=== PATIENT | female | born 1970 | race Caucasian/White ===

== ENCOUNTER 2021-11-15 13:04 | Inpatient (IN) | payer OTHER, SELFPAY ==
[2021-11-15] VITALS (12 sets, daily range): BP systolic 118–157; BP diastolic 62–99; PULSE 90–126; RESP 16–32; TEMP 37–37.7; O2SAT 95–98; BMI 27.2
--- NOTE | 2021-11-15 13:14 | DI.RAD.S_ITS ---
PROCEDURE: XR CHEST 1V INDICATIONS: suspected sepsis TECHNIQUE: One view of the chest was acquired. COMPARISON: None. FINDINGS: Surgical changes and devices: None. Lungs and pleura: Lungs are clear. No pleural effusions or pneumothorax. Mediastinum: Mediastinal contours appear normal. Heart size is normal. Bones and chest wall: No suspicious bony lesions. Overlying soft tissues appear unremarkable. IMPRESSION: No acute cardiopulmonary disease. Dictated by: Oksana Bautista M.D. on 11/15/2021 at 15:36 Approved by: Oksana Bautista M.D. on 11/15/2021 at 15:36
--- NOTE | 2021-11-15 13:37 | DI.RAD.S_ITS ---
PROCEDURE: XR FOOT LT MIN 3V INDICATIONS: rule out osteo TECHNIQUE: Three views of the foot were acquired. COMPARISON: None. FINDINGS: Bones: No fractures or dislocations. No suspicious bony lesions. Remote 5th metatarsal base cortical avulsion versus enthesopathy. No visible cortical erosions. Soft tissues: No tibiotalar joint effusion. Achilles tendon appears normal. No soft tissue gas. IMPRESSION: 1. No radiographic evidence of osteomyelitis. MR imaging is recommended if there is continued concern for osteomyelitis as radiographs are insensitive. 2. No soft tissue gas. Dictated by: Oksana Bautista M.D. on 11/15/2021 at 15:36 Approved by: Oksana Bautista M.D. on 11/15/2021 at 15:37
[2021-11-15] MEDS: SODIUM CHLORIDE 0.9% 1,000 ML 1000 ML IV ×2 (13:43→16:10)
--- NOTE | 2021-11-15 13:53 | PC.NURSE ---
patient got a pedicure and they used a grater on the bottom of her foot and since then a ulceration has formed. She has neuropathy and is unable to feel pain but she does have a 1 cm hole approx 0.5 cm deep. The wound is free from drainage but the area around her foot is red and swollen over most of her toes.
[2021-11-15 14:05] LABS: Add Manual Diff / Slide Review NO; Basophils Absolute Auto 100 /uL (0-100); Basophils Percent Auto 0.4 % (0-2); Eosinophils Absolute Auto 0 /uL (0-450); Hematocrit 37.8 % (36-46); Lymphocytes Absolute Auto 2400 /uL (1100-4500); Mean Corpuscular HGB Conc 34.3 % (30-36); Mean Corpuscular Hemoglobin 31.3 PG (26-34); Mean Corpuscular Volume 91.2 fL (80-100); Monocytes Absolute Auto 1100 /uL (0-900); Monocytes Percent Auto 7.3 % (3-14); Neutrophils Absolute Auto 11700 /uL (1500-7000); Neutrophils Percent Auto 76.3 % (50-75); Platelet Count 315 X10^3/uL (150-400); Red Blood Cell Count 4.14 X10^6/uL (4.0-5.2); Red Cell Distribution Width 12.7 % (11.6-14.8); White Blood Cell Count 15.3 X10^3/uL (4.5-11.0)
[2021-11-15 14:21] LABS: Lactate (Lactic Acid) 2.7 mmol/L (0.7-2.1)
[2021-11-15 14:24] LABS: Alanine Aminotransferase 22 IU/L (<35); Albumin 4.4 g/dL (3.5-5.0); Albumin Globulin Ratio 1.1 (1.0-2.8); Alkaline Phosphatase 91 U/L (38-126); Aspartate Aminotransferase 22 IU/L (14-36); BUN Creatinine Ratio 16.9 (6-22); Blood Urea Nitrogen 14 mg/dL (7-17); Calcium 9.9 mg/dL (8.4-10.2); Carbon Dioxide 26 mmol/L (22-32); Chloride 97 mmol/L (98-107); Estimated Glomerular Filt Rate > 60.0 mL/min (>60); Glucose 363 mg/dL (70-100); HEMOLYSIS < 15 (0-50); Lipase 159 U/L (23-300); Sodium 132 mmol/L (137-145); Total Protein 8.4 g/dL (6.3-8.2)
--- NOTE | 2021-11-15 14:29 | ED.SKABFB ---
HPI - Skin/Abscess/Foreign Bdy General Chief complaint: Skin/Abscess/Foreign Body Stated complaint: ulcer on left foot, diabetic Time Seen by Provider: 11/15/21 14:02 Source: patient Mode of arrival: Ambulatory Limitations: no limitations History of Present Illness HPI narrative: This is a 51-year-old female comes emergency department with complaint infection the bottom of her left foot. Patient states she had a pedicure approximately a month they used ?a cheese Grater? on the bottom of her foot. She developed a wound which has seen and intermittently infected and better and worse. She developed redness in the foot and extending up her leg today. She has had fevers from 99 F to 101 F for the last several days at home. She states it is not painful but she has significant neuropathy and does not have any sensation. It has been draining yellow discharge on her sock. She denies any chest pain or shortness of breath, no nausea or vomiting, no GI or urinary symptoms. Patient denies any swelling in her legs otherwise. She is an insulin-dependent diabetic she has not been taking her insulin because she has a vial and has run of syringes. She is on metformin, lisinopril, gabapentin, atorvastatin repair in all. She has had a prior . She has had issues with eczema but no prior skin infections. She has been using Neosporin topically. She is allergic to sulfa she gets hives. Her primary care is Anna marte and she follows with a mathematics department chair who has seen her for her foot. No tobacco, she has alcohol 4 times weekly, THC edible once weekly but no other illicit. Related Data Home Medications Medication Instructions Recorded Confirmed CA PANTOTHENATE/FOLIC ACID/VIT 1 tab PO Q DAY #0 06/12/12 11/15/21 (MULTIVITAMIN) CHOLECALCIFEROL (VITAMIN D3) 4 tsp PO QAM #0 06/12/12 11/15/21 Fish Oil (#OMEGA-3 FISH OIL) 1,200 mg PO Q DAY #0 06/12/12 11/15/21 aspirin 81 mg capsule 81 mg PO DAILY #0 06/12/12 11/15/21 lisinopril 5 mg tablet 5 mg PO SEEINSTR #0 06/12/12 11/15/21 metformin 1,000 mg tablet 1,000 mg PO BID #0 06/12/12 11/15/21 (Glucophage) atorvastatin 20 mg tablet 20 mg PO QPM 11/15/21 11/15/21 gabapentin 600 mg tablet 1,200 mg PO QPM 11/15/21 11/15/21 ropinirole 0.25 mg tablet 0.25 mg PO QPM 11/15/21 11/15/21 Allergies Allergy/AdvReac Type Severity Reaction Status Date / Time From Allergy Mild FULL BODY Uncoded 11/15/21 18:03 HIVES,ITCHING Review of Systems Review of Systems ROS Unobtainable: All systems reviewed & are unremarkable except as noted in HPI and below Patient History Social History household members: spouse and children Smoking Status: Never smoker alcohol intake: current Exam Narrative Exam Narrative: GENERAL: Alert and oriented x three, well-appearing female in mild distress. HEENT: Head normocephalic, atraumatic, EOMI, pupils reactive, face symmetric, moist mucous membranes NECK: Supple, full range of motion CARDIOVASCULAR: Regular rate and rhythm without murmurs, rubs or gallops. RESPIRATORY: Breath sounds equal bilaterally, no wheezes rales or rhonchi. ABDOMEN: Soft, nontender. Normoactive bowel sounds all 4 quadrants. No guarding or rebound, rigidity, no mass : No CVA tenderness EXTREMITIES: Normal range of motion, no clubbing. Neurovascularly intact. Patient has wound on the ball of her left foot with opening that is approximately cord 0.5 cm in size when probed with the depth about 1 cm. Patient has an area of erythema extending to the dorsum of the foot tracking up the leg to mid calf. She is nontender. I am not able to express additional discharge at this time. NEUROLOGICAL: Cranial nerves II through XII grossly intact. Moving all extremities SKIN: Warm, dry, no petechiae, no rashes or lesions. Initial Vital Signs Initial Vital Signs: Vital Signs Temperature 99.9 F H 11/15/21 13:08 Pulse Rate 126 H 11/15/21 13:08 Respiratory Rate 18 11/15/21 13:08 Blood Pressure 157/99 H 11/15/21 13:08 Pulse Oximetry 98 11/15/21 13:08 Course Orders Ordered: ED Orders 11/15/21 13:14 XR chest 1V Stat RT Consult Eval and Treat NOW 11/15/21 13:25 EKG-12 Lead Stat 11/15/21 13:30 CRP [C-Reactive Protein Quant] Stat Complete Blood Count AUTO DIFF Stat Comprehensive Metabolic Panel Stat ESR [Erythrocyte Sedimentation Rate] Stat Lactate (Lactic Acid) Stat Lipase Stat Procalcitonin Stat 11/15/21 13:37 XR foot LT min 3V Stat 11/15/21 14:10 Blood Culture Stat 11/15/21 14:50 Urine Microscopic Stat 11/15/21 15:16 COVID19 -Nasal swab/Pre-Proc Stat Acetaminophen (Acetaminophen 325 Mg Tablet) 650 mg PO Q6HR PRN PRN Reason: pain Enoxaparin Sodium (Enoxaparin 40 Mg/0.4 Ml Syringe) 40 mg SUBCUT DAILY [place] Vancomycin HCl/Dextrose (Vancomycin) 1,500 mg in 300 mls @ 200 mls/hr IV Q24H [place] Last Infusion: 11/15/21 16:44 Dose: 0 mls/hr Documented by: Admin: 11/15/21 14:44 Dose: 200 mls/hr Documented by: CATHY Sodium Chloride (Normal Saline 0.9%) 1,000 mls @ 100 mls/hr IV CONT [place] Cefepime HCl 1 gm/ Sodium (Chloride) 100 mls @ 200 mls/hr IV Q12H [place] Ondansetron HCl (Ondansetron 4 Mg/2 Ml Inj) 4 mg IV Q8HR PRN PRN Reason: Nausea And Vomiting Vancomycin HCl (Vancomycin Per Pharmacy) 1 request MISC NOW ONE Stop: 11/15/21 18:19 Discontinued Medications Sodium Chloride (Normal Saline 0.9%) 1,000 mls @ 1,000 mls/hr IV BOLUS ONE Stop: 11/15/21 14:13 Last Infusion: 11/15/21 15:43 Dose: 0 mls/hr Documented by: Admin: 11/15/21 13:43 Dose: 1,000 mls/hr Documented by: CATHY Sodium Chloride (Normal Saline 0.9%) 1,000 mls @ 1,000 mls/hr IV BOLUS ONE Stop: 11/15/21 16:43 Last Infusion: 11/15/21 17:54 Dose: 0 mls/hr Documented by: Admin: 11/15/21 16:10 Dose: 1,000 mls/hr Documented by: CATHY Reevaluation(s) Reevaluation #1: patient updated on findings. ESR, CRP are elevated lactate was elevated patient has been febrile at home 99 F here but tachycardic initially which improved with fluids. She had a vanco for possible osteomyelitis versus infected diabetic foot ulcer. Patient is agreeable to admission. Consultations Consultation #1: Dr. Ramos, hospitalist. Accepts for admission for diabetic foot ulcer which is infected verses osteomyelitis. Patient meets septic criteria with leukocytosis of 15, tachycardic at 1:20 a.m. with a sinus tach on arrival and had elevated lactate which is improving with fluids. Procalcitonin negative. This x-ray is negative but I do have concern about osteo. Plan for admission to initiate IV antibiotics, MRI tomorrow to help delineate her infection and disposition for appropriate treatment. Vital Signs Vital signs: Vital Signs - 8 hr 11/15/21 13:08 11/15/21 13:35 11/15/21 13:39 Temperature 99.9 F H Pulse Rate 126 H 109 H 106 H Respiratory Rate 18 21 Blood Pressure 157/99 H 128/68 Pulse Oximetry 98 97 95 11/15/21 14:00 11/15/21 14:30 11/15/21 14:53 Temperature Pulse Rate 97 H 104 H 109 H Respiratory Rate 20 24 16 Blood Pressure 124/64 121/67 130/62 Pulse Oximetry 97 96 98 11/15/21 15:00 11/15/21 15:30 Temperature Pulse Rate 98 H 94 H Respiratory Rate 32 H 23 Blood Pressure 125/62 118/64 Pulse Oximetry 97 97 MDM - Skin/Abscess/Foreign Bdy Lab Data Result diagrams: 11/15/21 13:30 11/15/21 13:30 Labs: Lab Results 11/15/21 11/15/21 11/15/21 Range/Units 13:30 13:30 13:30 WBC 15.3 H (4.5-11.0) X10^3/uL RBC 4.14 (4.0-5.2) X10^6/uL Hgb 13.0 (12.0-16.0) g/dL Hct 37.8 (36-46) % MCV 91.2 (80-100) fL MCH 31.3 (26-34) PG MCHC 34.3 (30-36) % RDW 12.7 (11.6-14.8) % Plt Count 315 (150-400) X10^3/uL Neut % (Auto) 76.3 H (50-75) % Lymph % (Auto) 16.0 L (25-40) % [place] % (Auto) 7.3 (3-14) % Eos % (Auto) 0.0 L (2-4) % Baso % (Auto) 0.4 (0-2) % Neut # (Auto) 35194 H (8712-2300) /uL Lymph # (Auto) 2400 (5962-1507) /uL [place] # (Auto) 1100 H (0-900) /uL Eos # (Auto) 0 (0-450) /uL Baso # (Auto) 100 (0-100) /uL ESR (0-20) MM/HR Sodium 132 L (137-145) mmol/L Potassium 4.0 (3.4-5.1) mmol/L Chloride 97 L (98-107) mmol/L Carbon Dioxide 26 (22-32) mmol/L BUN 14 (7-17) mg/dL Creatinine 0.83 (0.52-1.04) mg/dL Estimated GFR > 60.0 (>60) mL/min BUN/Creatinine Ratio 16.9 (6-22) Glucose 363 H (70-100) mg/dL Lactate 2.7 H (0.7-2.1) mmol/L Calcium 9.9 (8.4-10.2) mg/dL Total Bilirubin 1.0 (0.2-1.3) mg/dL AST 22 (14-36) IU/L ALT 22 (<35) IU/L Alkaline Phosphatase 91 (38-126) U/L C-Reactive Protein (<1.0) mg/dL Total Protein 8.4 H (6.3-8.2) g/dL Albumin 4.4 (3.5-5.0) g/dL Globulin 4.0 (1.7-4.1) g/dL Albumin/Globulin Ratio 1.1 (1.0-2.8) Lipase 159 (23-300) U/L Procalcitonin 0.06 (<0.5) ng/mL Urine RBC (0-5/HPF) Urine WBC (0-5/HPF) Urine Bacteria (None) Ur Culture Indicated? SARS-CoV-2 (PCR) (Negative) 11/15/21 11/15/21 11/15/21 Range/Units 13:30 13:30 14:50 WBC (4.5-11.0) X10^3/uL RBC (4.0-5.2) X10^6/uL Hgb (12.0-16.0) g/dL Hct (36-46) % MCV (80-100) fL MCH (26-34) PG MCHC (30-36) % RDW (11.6-14.8) % Plt Count (150-400) X10^3/uL Neut % (Auto) (50-75) % Lymph % (Auto) (25-40) % [place] % (Auto) (3-14) % Eos % (Auto) (2-4) % Baso % (Auto) (0-2) % Neut # (Auto) (1171-5824) /uL Lymph # (Auto) (8130-5628) /uL [place] # (Auto) (0-900) /uL Eos # (Auto) (0-450) /uL Baso # (Auto) (0-100) /uL ESR 58 H (0-20) MM/HR Sodium (137-145) mmol/L Potassium (3.4-5.1) mmol/L Chloride (98-107) mmol/L Carbon Dioxide (22-32) mmol/L BUN (7-17) mg/dL Creatinine (0.52-1.04) mg/dL Estimated GFR (>60) mL/min BUN/Creatinine Ratio (6-22) Glucose (70-100) mg/dL Lactate (0.7-2.1) mmol/L Calcium (8.4-10.2) mg/dL Total Bilirubin (0.2-1.3) mg/dL AST (14-36) IU/L ALT (<35) IU/L Alkaline Phosphatase (38-126) U/L C-Reactive Protein 8.6 H (<1.0) mg/dL Total Protein (6.3-8.2) g/dL Albumin (3.5-5.0) g/dL Globulin (1.7-4.1) g/dL Albumin/Globulin Ratio (1.0-2.8) Lipase (23-300) U/L Procalcitonin (<0.5) ng/mL Urine RBC 0-1/hpf (0-5/HPF) Urine WBC None seen (0-5/HPF) Urine Bacteria Occasional (0-1) (None) Ur Culture Indicated? Cult not indicated SARS-CoV-2 (PCR) (Negative) 11/15/21 11/15/21 Range/Units 15:16 15:59 WBC (4.5-11.0) X10^3/uL RBC (4.0-5.2) X10^6/uL Hgb (12.0-16.0) g/dL Hct (36-46) % MCV (80-100) fL MCH (26-34) PG MCHC (30-36) % RDW (11.6-14.8) % Plt Count (150-400) X10^3/uL Neut % (Auto) (50-75) % Lymph % (Auto) (25-40) % [place] % (Auto) (3-14) % Eos % (Auto) (2-4) % Baso % (Auto) (0-2) % Neut # (Auto) (9194-8837) /uL Lymph # (Auto) (9818-6368) /uL [place] # (Auto) (0-900) /uL Eos # (Auto) (0-450) /uL Baso # (Auto) (0-100) /uL ESR (0-20) MM/HR Sodium (137-145) mmol/L Potassium (3.4-5.1) mmol/L Chloride (98-107) mmol/L Carbon Dioxide (22-32) mmol/L BUN (7-17) mg/dL Creatinine (0.52-1.04) mg/dL Estimated GFR (>60) mL/min BUN/Creatinine Ratio (6-22) Glucose (70-100) mg/dL Lactate 1.1 (0.7-2.1) mmol/L Calcium (8.4-10.2) mg/dL Total Bilirubin (0.2-1.3) mg/dL AST (14-36) IU/L ALT (<35) IU/L Alkaline Phosphatase (38-126) U/L C-Reactive Protein (<1.0) mg/dL Total Protein (6.3-8.2) g/dL Albumin (3.5-5.0) g/dL Globulin (1.7-4.1) g/dL Albumin/Globulin Ratio (1.0-2.8) Lipase (23-300) U/L Procalcitonin (<0.5) ng/mL Urine RBC (0-5/HPF) Urine WBC (0-5/HPF) Urine Bacteria (None) Ur Culture Indicated? SARS-CoV-2 (PCR) Negative (Negative) Point of Care Testing Test Results Negative Urine Dip Bedside Urine Glucose 1000 mg/dl Bedside Urine Bilirubin - Negative Bedside Urine Ketone - Negative Urine Specific [place] 1.01 Bedside Urine Occult Blood - Negative Bedside Urine pH 6 Bedside Urine Protein - Negative Bedside Urine Urobilinogen - Negative Bedside Urine Nitrite - Negative Bedside Urine Leukocytes - Negative Esterase Imaging Data Extremity x-ray #1: Radiologist's Impression: [address] [address] XRay Report Signed Patient: Irma Rush MR#: [id number] : 1970 Acct:[id number] Age/Sex: 51 / F Date of Service: 11/15/21 Loc: ED Accession Number: [id number] ?? Procedure: XR foot LT min 3V Ordering Provider: Lesley Hughes D.O. PROCEDURE:? XR FOOT LT MIN 3V ? INDICATIONS:? rule out osteo ? TECHNIQUE:? Three views of the foot were acquired.? ? COMPARISON:? None. ? FINDINGS:? ? Bones:? No fractures or dislocations.? No suspicious bony lesions.? Remote 5th metatarsal base cortical avulsion versus enthesopathy.? No visible cortical erosions. ? Soft tissues:? No tibiotalar joint effusion.? Achilles tendon appears normal.? No soft tissue gas. ? ? IMPRESSION:? ? 1. No radiographic evidence of osteomyelitis.? MR imaging is recommended if there is continued concern for osteomyelitis as radiographs are insensitive. ? 2. No soft tissue gas.? ? ? Dictated by: Oksana Bautista M.D. on 11/15/2021 at 15:36 ? ? Approved by: Oksana Bautista M.D. on 11/15/2021 at 15:37?? ECG Data Attestation: I personally reviewed and interpreted this ECG as follows: Interpretation: Sinus tachycardia rate of 112 TN 126 QRS 80 QTC 450. No acute ST elevation or depression noted Q-wave in 2 3 and AVF. MDM Narrative Medical decision making narrative: This is a 51-year-old female known diabetic who is not well controlled and has not been taking her insulin recently. Patient had a pedicure a month ago with use of a ?she has greater on her foot.Patient has had a wound on her foot for that entire time she has had temperature is 101-99 F at home. She is tachycardic with a leukocytosis of 15 which improves with fluids. She does have a wound it is not expressing a significant amount of purulent fluid but she has cellulitis tracking over the dorsum and tracking up her ankle. X-ray is negative but she has elevated ESR and CRP concerning for possible osteomyelitis in the setting of diabetes which is not well controlled, patient was admitted for sepsis, diabetic foot infection versus osteomyelitis to the hospitalist after receiving 30 cc/kilos fluid bolus as well as IV antibiotics. Cultures are pending blood as well as from the wound itself. Discharge Plan Departure Patient Disposition: Admitted as Observation Clinical Impression: Diabetic infection of left foot, Sepsis Admit Date/Time: 11/15/21 16:35 Admit Provider: Fam Ramos
[2021-11-15 14:39] LABS: Procalcitonin 0.06 ng/mL (<0.5)
[2021-11-15] MEDS: VANCOMYCIN 1,500 MG/300 ML PIGGYBACK 200 MG IV (14:44)
[2021-11-15 15:09] LABS: C-Reactive Protein Quant 8.6 mg/dL (<1.0)
[2021-11-15 15:15] LABS: Erythrocyte Sedimentation Rate 58 MM/HR (0-20)
[2021-11-15 15:27] LABS: Bacteria Urine Occasional (0-1); Culture Indicated Urine Cult Not Indicated; RBC Urine 0-1/HPF (0-5/HPF); WBC Urine None Seen (0-5/HPF)
[2021-11-15 15:48] LABS: Reflexed Lactate in 2 Hours Y
[2021-11-15 16:03] LABS: COVID19 -Nasal RAPID Negative (Negative)
[2021-11-15 16:15] LABS: Lactate 2HR (Lactic Acid Rflx) 1.1 mmol/L (0.7-2.1)
--- NOTE | 2021-11-15 18:19 | DI.MRI.S_ITS ---
PROCEDURE: MR FOOT LT WO/W CON INDICATIONS: osteomyelitis TECHNIQUE: Noncontrast sagittal T1 spin echo and T2 fast spin echo with fat saturation, long-axis T1 spin echo and T2 fast spin echo with fat saturation; short-axis T1 spin echo, proton density fast spin echo, and T2 fast spin echo with fat saturation through the forefoot. Post-contrast short axis, long axis, and sagittal T1 spin echo with fat saturation through the forefoot. COMPARISON: [facility], CR, XR FOOT LT MIN 3V, 11/15/2021, 14:17. FINDINGS: Image quality: Excellent. Bones and joints: No suspicious osseous enhancement. No bone marrow contusions or metatarsal stress fractures. The sesamoid bones appear in expected positions, without internal edema. No metatarsophalangeal joint degeneration. No intraosseous lesions. Soft tissues: Reticulated and confluent T2 hyperintense/T1 hypointense signal is seen in the soft tissues, most prominent along the plantar aspect of the 1st MTP joint and 5th metatarsal base. Confluent contrast enhancement is seen along the plantar aspect of the hallux sesamoids, measuring 1.2 x 0.9 x 1.7 cm, most consistent with phlegmon/ulceration. The visualized plantar foot muscles demonstrate fatty atrophy with reticulated T2 hyperintense signal, compatible with reactive edema. Visualized flexor and extensor tendons appear intact, without tenosynovitis. The distal insertions of the peroneus longus tendon appears intact. The principal Lisfranc ligament appears intact. Sagittal images demonstrate no evidence for plantar plate tears. IMPRESSION: 1. No evidence of osteomyelitis. 2. Diffuse intramuscular edema, which may reflect reactive change versus myositis. 3. Area of contrast enhancement overlying the plantar aspect of the hallux sesamoids, most consistent with phlegmon/ulcer. Dictated by: Collin Gan M.D. on 11/16/2021 at 11:07 Approved by: Collin Gan M.D. on 11/16/2021 at 11:17
[2021-11-15] MEDS: SODIUM CHLORIDE 0.9% 1,000 ML 100 ML IV (19:07)
[2021-11-15] MEDS: CEFEPIME 1 GM in SODIUM CHLORIDE 0.9% 100 ML 200 ML IV (19:08)
[2021-11-16] VITALS (9 sets, daily range): BP systolic 103–119; BP diastolic 60–70; PULSE 77–89; RESP 16–20; TEMP 36.7–37.6; O2SAT 96–99
--- NOTE | 2021-11-16 00:44 | P.HP_ITS ---
History of Present Illness History of Present Illness Date Patient Seen: 11/15/21 Time Patient Seen: 22:30 Chief complaint: diabetic foot ulcer on left foot Narrative: Irma Rush is a 51-year-old female with diabetes type 2, diabetic peripheral neuropathy, and essential hypertension presented to the emergency department today with a complaint of a wound on her left ball of her foot that appears to have gotten infected. She had a pedicure done approximately 1 month ago. She states that the manager solar and used some sort of serrated file on the ball of h er left foot. She realize that it did break some skin. She presented today because she developed a fever of 99-101 F for several days and noticed that there was some redness extending up her leg. She states that it has been draining yellow discharge that she notices mainly when she removes her socks. She has not tried to express the wound at all but has used Neosporin topically on her foot. She states that is not painful as she has bilateral peripheral neuropathy and has no sensation in her feet. she takes gabapentin for this in the evenings. She sees Dr. Silvia Farrar, benefits coordinator on [place] and has an appointment with her several weeks from now. Patient states she used to take in sulin and in reviewing the ED provider's notes the patient had run out of her prescription for syringes. She used to be on glargine 20 units at bedtime. Patient states that she went on a keto diet and was able to drop her A1c down to 6.2, lost 20 lb and over Stu when off the diet and her most recent hemoglobin A1c at that time was 10. X-ray of the left foot did not reveal suspicion for osteomyelitis or gas around the wound. Chest x-ray was within normal limits. Patient's T-max in the emergency department was 99.9. Currently her blood pressure is 118/66, heart rate 90, respiratory rate 16, oxygen saturation of 97% on room air she weighs 72 kg with a BMI of 27.2. She does have elevated WBC of 15.3 with a left shift of almost 12,000 neutrophils ESR is 58 sodium 132 potassium 4.0 chloride 97 glucose 363 the rest of her chemistries are within normal limits C-reactive protein is 8 .6 liver enzymes within normal limits, UA is negative for UTI and COVID-19 PCR is negative Patient History Medical History (Updated 11/16/21 @ 03:18 by ZOE Hanks) Diabetes type 2, controlled Essential hypertension Neuropathy in diabetes (06/12/12) Pure hyperglyceridemia (06/12/12) Family & Social History Family history unavailable: Yes (Adopted, believes her mother in her 60s of a cancer of unknown origin) Social History: household members spouse,children Prior Living Arrangements House Safety & Behavioral: Feels Safe in Current Yes Environment Been Physically Hurt or No Threatened By a Person Suicidal Ideation Description None Suicide Plan Description No Plan Tobacco & Substance use: Smoking Status Never smoker alcohol intake current alcohol intake frequency a few times a week Substance Use Type marijuana Meds Home Medications and Allergies Home Medications Medication Instructions Recorded Confirmed Type CA PANTOTHENATE/FOLIC ACID/VIT 1 tab PO Q DAY #0 06/12/12 11/15/21 History (MULTIVITAMIN) CHOLECALCIFEROL (VITAMIN D3) 4 tsp PO QAM #0 06/12/12 11/15/21 History Fish Oil (#OMEGA-3 FISH OIL) 1,200 mg PO Q DAY #0 06/12/12 11/15/21 History aspirin 81 mg capsule 81 mg PO DAILY #0 06/12/12 11/15/21 History lisinopril 5 mg tablet 5 mg PO SEEINSTR #0 06/12/12 11/15/21 History metformin 1,000 mg tablet 1,000 mg PO BID #0 06/12/12 11/15/21 History (Glucophage) atorvastatin 20 mg tablet 20 mg PO QPM 11/15/21 11/15/21 History gabapentin 600 mg tablet 1,200 mg PO QPM 11/15/21 11/15/21 History ropinirole 0.25 mg tablet 0.25 mg PO QPM 11/15/21 11/15/21 History Allergies Allergy/AdvReac Type Severity Reaction Status Date / Time From APRRA Allergy Mild FULL BODY Uncoded 11/15/21 18:03 HIVES,ITCHING Review of Systems Review of Systems ROS: Yes All systems reviewed with the patient and are negative except as otherwise documented Exam Vital Signs (past 8 hours): - 11/15/21 18:49 11/15/21 23:55 Temperature 98.6 F 98.8 F Pulse Rate 107 H 90 Respiratory Rate 18 16 Blood Pressure 122/71 118/66 Pulse Oximetry 97 97 Oxygen Delivery Method Room Air Oxygen Flow Rate 0 Narrative Exam Narrative: Gen: Alert, oriented, well-developed 51 y.o. female, sound asleep when I entered the room, but responded to very loud voice HEENT: normocephalic, atraumatic, conjunctiva clear, sclera non-icteric, oral mucosa pink and moist Neck: supple, full ROM, no JVD, trachea is midline Resp: Lungs CTA, non-labored breathing CV: RRR, no murmur or rubs Abd: soft, non-tender, normoactive BTs Skin: Has a yellowed and peeling lesion approximately 1-1/2 inches in diameter on the ball of her left foot with surrounding erythema extending into the forefoot and over the remainder of her toes. Neuro: Alert and oriented X 4 w/no focal deficits. Speech clear and coherent. Extremities: moves all 4 extremities, is ambulatory, negative Vinicio?s sign Psyche: normal mood and affect. Objective Labs Result Diagrams: 11/15/21 13:30 11/15/21 13:30 Labs: Laboratory Results - last 24 hr 11/15/21 11/15/21 11/15/21 13:30 13:30 13:30 WBC 15.3 H RBC 4.14 Hgb 13.0 Hct 37.8 MCV 91.2 MCH 31.3 MCHC 34.3 RDW 12.7 Plt Count 315 Neut % (Auto) 76.3 H Lymph % (Auto) 16.0 L [place] % (Auto) 7.3 Eos % (Auto) 0.0 L Baso % (Auto) 0.4 Neut # (Auto) 43568 H Lymph # (Auto) 2400 [place] # (Auto) 1100 H Eos # (Auto) 0 Baso # (Auto) 100 ESR Sodium 132 L Potassium 4.0 Chloride 97 L Carbon Dioxide 26 BUN 14 Creatinine 0.83 Estimated GFR > 60.0 BUN/Creatinine Ratio 16.9 Glucose 363 H Lactate 2.7 H Calcium 9.9 Total Bilirubin 1.0 AST 22 ALT 22 Alkaline Phosphatase 91 C-Reactive Protein Total Protein 8.4 H Albumin 4.4 Globulin 4.0 Albumin/Globulin Ratio 1.1 Lipase 159 Procalcitonin 0.06 Urine RBC Urine WBC Urine Bacteria Ur Culture Indicated? SARS-CoV-2 (PCR) 11/15/21 11/15/2111/15/22 13:30 13:30 14:50 WBC RBC Hgb Hct MCV MCH MCHC RDW Plt Count Neut % (Auto) Lymph % (Auto) [place] % (Auto) Eos % (Auto) Baso % (Auto) Neut # (Auto) Lymph # (Auto) [place] # (Auto) Eos # (Auto) Baso # (Auto) ESR 58 H Sodium Potassium Chloride Carbon Dioxide BUN Creatinine Estimated GFR BUN/Creatinine Ratio Glucose Lactate Calcium Total Bilirubin AST ALT Alkaline Phosphatase C-Reactive Protein 8.6 H Total Protein Albumin Globulin Albumin/Globulin Ratio Lipase Procalcitonin Urine RBC 0-1/hpf Urine WBC None seen Urine Bacteria Occasional (0-1) Ur Culture Indicated? Cult not indicated SARS-CoV-2 (PCR) 11/15/21 11/15/21 15:16 15:59 WBC RBC Hgb Hct MCV MCH MCHC RDW Plt Count Neut % (Auto) Lymph % (Auto) [place] % (Auto) Eos % (Auto) Baso % (Auto) Neut # (Auto) Lymph # (Auto) [place] # (Auto) Eos # (Auto) Baso # (Auto) ESR Sodium Potassium Chloride Carbon Dioxide BUN Creatinine Estimated GFR BUN/Creatinine Ratio Glucose Lactate 1.1 Calcium Total Bilirubin AST ALT Alkaline Phosphatase C-Reactive Protein Total Protein Albumin Globulin Albumin/Globulin Ratio Lipase Procalcitonin Urine RBC Urine WBC Urine Bacteria Ur Culture Indicated? SARS-CoV-2 (PCR) Negative Assessment & Plan Assessment & Plan narrative: Irma Rush is a very delightful 51-year-old female with a history of type 2 diabetes previously using insulin, is admitted for further treatment and management of a diabetic foot ulcer. 1. Diabetic foot ulcer on the left foot, acute, present on admission * Patient was initiated on IV cefepime and IV vancomycin and this will be cont inued * MRI of the foot will be done in the morning and if there is suspicion for osteomyelitis recommend orthopedic consult to informed podiatry of patient's admission * Continue home dose of gabapentin 1200 mg p.o. at bedtime for diabetic foot neuropathy 2. Diabetes type 2, appears not will be well controlled * I have ordered an A1c * She will be restarted on her previous home dose of Lantus 20 units daily * Carb controlled diet with a.c. and HS glucose checks 3. Essential hypertension, chronic and stable * She takes lisinopril 5 mg p.o. daily and will continue this * Continue home dose of aspirin 81 mg p.o. daily 4. Hyperlipidemia, chronic * Continue home dose of atorvastatin 20 mg p.o. daily 5. Restless leg syndrome, chronic * Continue home dose of ropinirole 0.25 mg p.o. at bedtime VTE Prophylaxis: Wells risk score 0 Enoxaparin 40 mg subQ once daily Bilateral SCDs Patient is admitted to the inpatient service due to the severity of disease, risks of further disease progression and this stay is expected to exceed 2 midnights. FEN: IV fluids: Normal saline at 100 mL/hour diet: Carb controlled diet, labs: CBC, C/BMP, liver enzymes, Mag, PT/INR Consultants None at this time Dispo: Probable discharge home Code status: Full code as discussed with the patient. [X] I have utilized all available immediate resources to obtain, update, or review of the patient's current medications COVID-19 COVID-19 status: Negative Result date/Date tested (Pos, Neg/Pending): 11/15/21 Time Spent With Patient Critical Care time: I spent a total of [] minutes of critical care time on this patient's care today; this time is exclusive of procedural time. Scores Wells' Criteria for PE Clinical signs and symptoms of DVT: No PE is #1 Dx or equally likely: No Heart rate > 100: No Immobilization at least 3 days or surg in previous 4 weeks: No History of PE or DVT: No Hemoptysis: No Malignancy w/Treatment within 6 months or palliative: No Wells' PE Score total: 0 Quality VTE Deep Vein Thrombosis/Pulmonary Embolism Present on Admission: No MIPS - Admit I confirm the patient?s Advance Care Plan is present, Code status is documented, Surrogate decision maker is in patient?s record [If Yes, STOP here]: Yes MIPS - DC The patient has current or prior documentation of left ventricular ejection fraction (LVEF) less than 40%, or moderate or severely depressed left ventricular systolic function.: No
[2021-11-16] MEDS: CEFEPIME 1 GM in SODIUM CHLORIDE 0.9% 100 ML 200 ML IV ×2 (06:10→18:14)
[2021-11-16] MEDS: SODIUM CHLORIDE 0.9% 1,000 ML 100 ML IV (06:13)
[2021-11-16 06:36] LABS: Add Manual Diff / Slide Review NO; Basophils Absolute Auto 0 /uL (0-100); Basophils Percent Auto 0.3 % (0-2); Eosinophils Absolute Auto 100 /uL (0-450); Eosinophils Percent Auto 0.6 % (2-4); Hematocrit 31.3 % (36-46); Hemoglobin 10.9 g/dL (12.0-16.0); Lymphocytes Absolute Auto 2200 /uL (1100-4500); Lymphocytes Percent Auto 19.7 % (25-40); Mean Corpuscular HGB Conc 34.7 % (30-36); Mean Corpuscular Hemoglobin 31.9 PG (26-34); Mean Corpuscular Volume 91.9 fL (80-100); Monocytes Absolute Auto 900 /uL (0-900); Monocytes Percent Auto 7.7 % (3-14); Neutrophils Absolute Auto 8000 /uL (1500-7000); Neutrophils Percent Auto 71.7 % (50-75); Platelet Count 235 X10^3/uL (150-400); Red Cell Distribution Width 12.6 % (11.6-14.8); White Blood Cell Count 11.2 X10^3/uL (4.5-11.0)
[2021-11-16 06:43] LABS: BUN Creatinine Ratio 16.4 (6-22); Blood Urea Nitrogen 12 mg/dL (7-17); Calcium 7.9 mg/dL (8.4-10.2); Carbon Dioxide 22 mmol/L (22-32); Chloride 107 mmol/L (98-107); Estimated Glomerular Filt Rate > 60.0 mL/min (>60); Glucose 254 mg/dL (70-100); HEMOLYSIS < 15 (0-50); Potassium 4.1 mmol/L (3.4-5.1); Sodium 136 mmol/L (137-145)
[2021-11-16 06:51] LABS: Hemoglobin A1C% w Est Avg Glu 12.6 % (4.0-6.0)
--- NOTE | 2021-11-16 07:28 | PC.NURSE ---
NOC: admit to floor at 1900. falguni w/ patient. has open area to plantar area of Left foot after pedicure 1 month ago. area is JOSELINE, encouraged her to wear a sock when ambulating to/from bathroom. continues w/ IVF, NS @ 100, IV abx. NPO since midnight.
[2021-11-16] MEDS: ENOXAPARIN 40 MG/0.4 ML SYRINGE SUBCUT (11:52)
[2021-11-16] MEDS: ASPIRIN EC 81 MG TABLET PO (11:52)
[2021-11-16] MEDS: VANCOMYCIN 1,500 MG/300 ML PIGGYBACK 200 MG IV (14:49)
--- NOTE | 2021-11-16 15:14 | P.PN_ITS ---
Subjective Subjective Date Patient Seen: 11/16/21 Time Patient Seen: 15:14 Interval history: No significant improvement in swelling, but no progression either of cellulitis. MRI negative for fluid collection. Exam Vital Signs (past 8 hours): - 11/16/21 07:17 11/16/21 07:40 11/16/21 11:48 Temperature 99.6 F Pulse Rate 77 77 Respiratory Rate 20 Blood Pressure 107/63 107/63 Pulse Oximetry 98 99 Oxygen Delivery Method Room Air Oxygen Flow Rate 0 Narrative Exam Narrative: Gen: Alert, oriented, well-developed 51 y.o. ? female in no acute distress HEENT: normocephalic, atraumatic, conjunctiva clear, sclera non-icteric, oral mucosa pink and moist Neck: supple, full ROM, no JVD, trachea is midline Resp: Lungs CTA, non-labored breathing CV: RRR, no murmur or rubs Abd: soft, non-tender, normoactive BTs Skin: left?1st MTP joint, plantar surface, with ulceration under callous formation. No bone visible. surrounding erythema demarcated with no significant change. No purulence able to be expressed Neuro: Alert and oriented X 4 w/no focal deficits. Speech clear and coherent. bilateral peripheral neuropathy of the lower extremities, chronic. Extremities: no edema or joint effusion Psyche: normal mood and affect. Objective Labs Result Diagrams: 11/16/21 06:24 11/16/21 06:24 Labs: Laboratory Results - last 24 hr 11/15/21 11/15/21 11/15/21 13:30 14:50 15:16 WBC RBC Hgb Hct MCV MCH MCHC RDW Plt Count Neut % (Auto) Lymph % (Auto) [place] % (Auto) Eos % (Auto) Baso % (Auto) Neut # (Auto) Lymph # (Auto) [place] # (Auto) Eos # (Auto) Baso # (Auto) ESR 58 H Sodium Potassium Chloride Carbon Dioxide BUN Creatinine Estimated GFR BUN/Creatinine Ratio Glucose Hemoglobin A1c Lactate Calcium Urine RBC 0-1/hpf Urine WBC None seen Urine Bacteria Occasional (0-1) Ur Culture Indicated? Cult not indicated SARS-CoV-2 (PCR) Negative 11/15/21 11/16/21 11/16/21 15:59 06:24 06:24 WBC 11.2 H RBC 3.40 L Hgb 10.9 L Hct 31.3 L MCV 91.9 MCH 31.9 MCHC 34.7 RDW 12.6 Plt Count 235 Neut % (Auto) 71.7 Lymph % (Auto) 19.7 L [place] % (Auto) 7.7 Eos % (Auto) 0.6 L Baso % (Auto) 0.3 Neut # (Auto) 8000 H Lymph # (Auto) 2200 [place] # (Auto) 900 Eos # (Auto) 100 Baso # (Auto) 0 ESR Sodium 136 L Potassium 4.1 Chloride 107 Carbon Dioxide 22 BUN 12 Creatinine 0.73 Estimated GFR > 60.0 BUN/Creatinine Ratio 16.4 Glucose 254 H D Hemoglobin A1c Lactate 1.1 Calcium 7.9 L Urine RBC Urine WBC Urine Bacteria Ur Culture Indicated? SARS-CoV-2 (PCR) 11/16/21 06:24 WBC RBC Hgb Hct MCV MCH MCHC RDW Plt Count Neut % (Auto) Lymph % (Auto) [place] % (Auto) Eos % (Auto) Baso % (Auto) Neut # (Auto) Lymph # (Auto) [place] # (Auto) Eos # (Auto) Baso # (Auto) ESR Sodium Potassium Chloride Carbon Dioxide BUN Creatinine Estimated GFR BUN/Creatinine Ratio Glucose Hemoglobin A1c 12.6 H Lactate Calcium Urine RBC Urine WBC Urine Bacteria Ur Culture Indicated? SARS-CoV-2 (PCR) [facility] Medical History (Updated 11/16/21 @ 03:18 by ZOE Hanks) Diabetes type 2, controlled Essential hypertension Neuropathy in diabetes (06/12/12) Pure hyperglyceridemia (06/12/12) Social History household members: spouse and children Smoking Status: Never smoker alcohol intake: current Assessment & Plan Assessment & Plan narrative: Irma Rush is a very delightful 51-year-old female with a history of type 2 diabetes previously using insulin, is admitted for further treatment and management of a diabetic foot ulcer. 1. Diabetic foot ulcer on the left foot, acute, present on admission, with corresponding cellulitis. * Patient was initiated on IV cefepime and IV vancomycin and this will be continued * MRI negative for osteomyeltitis or fluid collection, continue antibiotics. Consider orthopedics or podiatry if no significant improvement in surrounding erythema * Continue home dose of gabapentin 1200 mg p.o. at bedtime for diabetic foot neuropathy 2. Diabetes type 2, appears not will be well controlled * a1c 12.6% * restarted lantus, continue to adjust as needed. Continue sliding scale as well. 3. Essential hypertension, chronic and stable * She takes lisinopril 5 mg p.o. daily and will continue this * Continue home dose of aspirin 81 mg p.o. daily 4. Hyperlipidemia, chronic * Continue home dose of atorvastatin 20 mg p.o. daily 5. Restless leg syndrome, chronic * Continue home dose of ropinirole 0.25 mg p.o. at bedtime Dispo:? Probable discharge home, discharge 1-3 days depending on progress of i nfection with antibitiocs. Code status:? Full code as discussed with the patient. Time Spent With Patient Critical Care time: I spent a total of [] minutes of critical care time on this patient's care today; this time is exclusive of procedural time. Quality VTE Deep Vein Thrombosis/Pulmonary Embolism Present on Admission: No
--- NOTE | 2021-11-16 15:26 | CM.DANOTE ---
DCP: Case received, EMR reviewed and met with patient. Introduced self and role. Was able to obtain information regarding patient's baseline health history prior to hospitalization. DCP assessment completed with information currently available Patient is a 51 year old female who admitted yesterday afternoon to the care of the hospitalist team. PCP: Dr. Gillette. Payer: confirmed: [facility]. Patient came to the hospital via private vehicle secondary to having concerns about a possible infection at the bottom of her foot. Patient had recently had a pedicure and indicated, they used a certain tool, like a cheese grater on the bottom of her foot. Patient has history of neuropathy secondary to diabetes type 2. Patient has been noting yellowish drainage on her sock, did not feel any discomforts, related to neuropathy. Patient is a insulin dependent diabetic. She holds current diagnosis of diabetic foot infection, foot x-ray is negative for osteomyelitis. Met with patient in her room. She is alert and oriented. She was laying on the bed, pleasant. Patient resides with her spouse, Moo, in [place]. She is independent at her baseline, sees Dr. Gillette, and has a equal opportunity officer that she sees. Patient is diabetic, asked her if she has had any problems getting her meds, and she indicated that she has not had any trouble getting her medications, they are mail order. P: DCP to continue to follow. Patient should be able to go home when she is deemed medically stable. Elisha Che RN/Back Closer Discharge Planning/Care Management Advanced directive, confirm from FAMILY Start: 11/15/21 18:51 Freq: Q24H Status: Active Protocol: Document 11/15/21 18:51 AKP (Rec: 11/15/21 18:52 AKP [id number]) Advance Directive, confirm on record Time 18:52 Person contacted spouse Moo Copy received No CM Discharge Assessment Start: 11/16/21 15:25 Freq: Status: Active Protocol: Document 11/16/21 15:25 (Rec: 11/16/21 15:26 [id number]) Discharge Planning Assessment Assigned Cut In Worker Elisha Che RN/Back Closer Advance Directives? Yes Advance Directives on File No History Provided By Patient,Medical Record Prior Living Arrangements House Household Members spouse,children Type of transporation used prior to Drives own vehicle admit Independent with ADL's Yes Is patient alert and oriented? Yes Caregiver for Another No Barriers to Discharge No Discharge Plan Home Transportation Arrangement Spouse Referrals Initiated None needed Whiteboard Updated in Patient Room with Yes name and ext. # of Cut In Worker Review Status In Process Next Review Type Continued Stay Review
--- NOTE | 2021-11-16 16:49 | DIET.CONS ---
Dietary Consultation Note Admission Date: 11/15/2021 16:35 Assessment: RD attempted bedside consultation for suboptimal control of DM2. Pt rocking on window seat looking like in pain. Pt reports not good time for discussion. RD alerted nurse who found out pt has IBS and dealing with flare. RD to check back in with pt Tuesday morning. Ht: 162.56 cm Wt: 72 kg BMI: 27.2 UBW: Last BM: 11/13/21 (11/15/21 18:19) MNA: 12 Fernando Score: 20 Diet: 11/16/21 Breakfast Carbohydrate Consistent Diet Diet Modifications: Carbohydrate level: Medium (3 CHO) Nutrition Percent Meal Consumed 100% 11/15/21 20:00 Labs: RBC 3.40 X10^6/uL (4.0-5.2) L 11/16/21 06:24 Hgb 10.9 g/dL (12.0-16.0) L 11/16/21 06:24 Hct 31.3 % (36-46) L 11/16/21 06:24 Creatinine 0.73 mg/dL (0.52-1.04) 11/16/21 06:24 Hemoglobin A1c 12.6 % (4.0-6.0) H 11/16/21 06:24 Lactate 1.1 mmol/L (0.7-2.1) 11/15/21 15:59 Electronically Signed by: Indu Barrera 11/16/21 16:49 Clinical Dietitian [address] [id number]
[2021-11-16] MEDS: ROPINIROLE 0.25 MG TABLET PO (17:57)
[2021-11-16] MEDS: ATORVASTATIN 20 MG TABLET PO (17:57)
[2021-11-16] MEDS: GABAPENTIN 600 MG TABLET 1200 MG PO (17:57)
[2021-11-16] MEDS: lisinopriL 5 MG TABLET PO (21:01)
[2021-11-16] MEDS: INSULIN GLARGINE 100 UNIT/ML 3ML PEN 15 UNIT SUBCUT (21:06)
[2021-11-17 04:20] VITALS: BP 98/58; PULSE 76; RESP 18; TEMP 36.7; O2SAT 98
[2021-11-17] MEDS: CEFEPIME 1 GM in SODIUM CHLORIDE 0.9% 100 ML 200 ML IV (06:17)
[2021-11-17] MEDS: ENOXAPARIN 40 MG/0.4 ML SYRINGE SUBCUT (08:31)
[2021-11-17] MEDS: ASPIRIN EC 81 MG TABLET PO (08:31)
[2021-11-17] MEDS: INSULIN LISPRO 100 UNIT/ML 3ML VIAL SUBCUT (08:48)
--- NOTE | 2021-11-17 10:15 | P.DS_ITS ---
History of Present Illness History of Present Illness Date Patient Seen: 11/17/21 Time Patient Seen: 10:15 Chief complaint: diabetic foot ulcer on left foot Narrative: OZE [place]: Irma Rush is a 51-year-old female with diabetes type 2, diabetic peripheral neuropathy, and essential hypertension presented to the emergency department to day with a complaint of a wound on her left ball of her foot that appears to have gotten infected.? She had a pedicure done approximately 1 month ago.? She states that the customer support technician and used some sort of serrated file on the ball of her left foot.? She realize that it did break some skin.? She presented today because she developed a fever of 99-101 F for several days and noticed that there was some redness extending up her leg.? She states that it has been draining yellow discharge that she notices mainly when she removes her socks.? She has not tried to express the wound at all but has used Neosporin topically on her foot.? She states that is not painful as she has bilateral peripheral ne uropathy and has no sensation in her feet. she takes gabapentin for this in the evenings.? She sees Dr. Silvia Farrar, manager marketing communications on [place] and has an appointment with her several weeks from now.? Patient states she used to take insulin and in reviewing the ED provider's notes the patient had run out of her prescription for syringes.? She used to be on glargine 20 units at bedtime.? Patient states that she went on a keto diet and was able to drop her A1c down to 6.2, lost 20 lb and over [place] when off the diet and her most recent hemoglobin A1c at that time was 10. X-ray of the left foot did not reveal suspicion for osteomyelitis or gas around the wound.? Chest x-ray was within normal limits.? Patient's T-max in the emergency department was 99.9.? Currently her blood pressure is 118/66, heart rate 90, respiratory rate 16, oxygen saturation of 97% on room air she weighs 72 kg with a BMI of 27.2.? She does have elevated WBC of 15.3 with a left shift of almost 12,000 neutrophils ESR is 58 sodium 132 potassium 4.0 chloride 97 glucose 363 the rest of her chemistries are within normal limits C-reactive protein is 8.6 liver enzymes within normal limits, UA is negative for UTI and COVID-19 PCR is negative Discharge Providers Provider Date of admission: 11/15/21 16:35 Discharge Date: 11/17/21 Primary care physician: Anna Gillette Consults: 11/16/21 10:37 Consult to Dietitian, Adult Routine Comment: Reason For Exam: diabetes A1c 12.6% Discharge provider: Fabiano Fleming DO Summary Hospital Course Discharge Diagnosis: 1. Diabetic foot ulcer on the left foot, acute, present on admission, with corresponding cellulitis. 2. Diabetes type 2, appears not will be well controlled 3. Essential hypertension, chronic and stable 4. Hyperlipidemia, chronic 5. Restless leg syndrome, chronic Hospital Course: Irma Rush is a very delightful 51-year-old female with a history of type 2 diabetes previously using insulin who was admitted for a left foot cellulitis and plantar surface ulcer over the 1st MTP joint. There was no active purulence or drainage, imaging showed no discrete abscess or evidence of osteomyelitis. She was treated with IV antibiotics initially, with improvement in her cellulitis and swelling. She was discharged on oral antibiotics including cefdinir doxycycline for continued outpatient management. She plans to follow- up with her manager marketing communications for further diabetic foot management and wound care. No other changes were made to her home medications. Time Spent with Patient Time spent: Greater than 30 minutes Exam Vital Signs (past 8 hours): - 11/17/21 04:20 Temperature 98.0 F Pulse Rate 76 Respiratory Rate 18 Blood Pressure 98/58 L Pulse Oximetry 98 Oxygen Delivery Method Room Air Oxygen Flow Rate 0 Narrative Exam Narrative: Gen: Alert, oriented, well-developed 51 y.o. ? female in no acute distress HEENT: normocephalic, atraumatic, conjunctiva clear, sclera non-icteric, oral mucosa pink and moist Neck: supple, full ROM, no JVD, trachea is midline Resp: Lungs CTA, non-labored breathing CV: RRR, no murmur or rubs Abd: soft, non-tender, normoactive BTs Skin: left?1st MTP joint, plantar surface, with ulceration under callous formation. No bone visible. surrounding erythema demarcated with improvement today. No purulence able to be expressed Neuro: Alert and oriented X 4 w/no focal deficits. Speech clear and coherent. bilateral peripheral neuropathy of the lower extremities, chronic. Extremities: no edema or joint effusion Psyche: normal mood and affect. Objective Labs Result Diagrams: 11/16/21 06:24 11/16/21 06:24 [facility] Medical History (Updated 11/16/21 @ 03:18 by ZOE Hanks) Diabetes type 2, controlled Essential hypertension Neuropathy in diabetes (06/12/12) Pure hyperglyceridemia (06/12/12) Social History household members: spouse and children Smoking Status: Never smoker alcohol intake: current Discharge Plan Discharge Plan Patient Disposition: Home Provider Discharge Comment: You were admitted to the hospital with a diabetic foot infection and ulcer with a callous. Please follow up with your manager marketing communications and continue treatment with antibiotics. Please follow up with your PCP for diabetes management, in the short term if your diet is going to significantly change we can reduce your lantus to 10 units a day to reduce risk of low blood sugars. Discharge orders & Medications Prescriptions: New cefdinir 300 mg capsule 300 mg PO BID 10 Days Qty: 20 0RF doxycycline hyclate 100 mg tablet 100 mg PO BID 10 Days Qty: 20 0RF Lantus U-100 Insulin 100 unit/mL solution 10 unit SUBCUT QPM 30 Days Qty: 3 0RF Continued aspirin 81 mg Capsule 81 mg PO DAILY Qty: 0 0RF Fish Oil (#OMEGA-3 FISH OIL) 1,200 mg PO Q DAY Qty: 0 0RF metformin [Glucophage] 1,000 MG tablet 1,000 mg PO BID Qty: 0 0RF lisinopril 5 MG tablet 5 mg PO SEEINSTR Qty: 0 0RF Rx Instructions: 10mg in am and 5mg tab at nighttime CA PANTOTHENATE/FOLIC ACID/VIT (MULTIVITAMIN) 1 tab PO Q DAY Qty: 0 0RF CHOLECALCIFEROL (VITAMIN D3) 4 tsp PO QAM Qty: 0 0RF gabapentin 600 mg tablet 1,200 mg PO QPM 0RF atorvastatin 20 mg tablet 20 mg PO QPM 0RF ropinirole 0.25 mg tablet 0.25 mg PO QPM 0RF Follow up/Referrals: Anna Gillette PA-C [Primary Care Provider] - Diet/Activity/Treatments Diet: Diet as Tolerated Activity: As tolerated, avoid pressure over R forefoot. Discharge Data Primary Care Provider: Anna Gillette VTE Deep Vein Thrombosis/Pulmonary Embolism Present on Admission: No
[2021-11-17 10:16] VITALS: O2SAT 99
[2021-11-17 10:22] VITALS: BP 131/77
[2021-11-17] MEDS: lisinopriL 10 MG TABLET PO (10:33)
--- NOTE | 2021-11-17 11:59 | PC.NURSE ---
Patient and spouse in room, verbalize understanding to all discharge education/ instructions given. Patient will follow up with PCP for continued insulin management, wound cares for left foot. Leaves in wheelchair and spouse goes down to get car to drive home in. Saline lock dc'd- tip intact.
== END 2021-11-17 11:59 | disposition home or self-care (01) | DRG 638 ==
LOC: ED 14:02 → AC 17:55
PROVIDERS: Nurse Practitioner Family; Admitting Provider Internal Medicine; Emergency Provider Emergency Medicine; PCP Physician Assistant; Referring Provider Emergency Medicine; Visit Provider Internal Medicine
DX: E11.621 Type 2 diabetes mellitus with foot ulcer (principal); L03.116 Cellulitis of left lower limb; L97.521 Non-pressure chronic ulcer of other part of left foot limited to breakdown of skin; E11.65 Type 2 diabetes mellitus with hyperglycemia; E11.42 Type 2 diabetes mellitus with diabetic polyneuropathy; I10 Essential (primary) hypertension; E78.5 Hyperlipidemia, unspecified; G25.81 Restless legs syndrome; Z20.822 Contact with and (suspected) exposure to COVID-19; Z79.84 Long term (current) use of oral hypoglycemic drugs
CPT/HCPCS: 36415; 71045; 73630; 73720; 80048; 80053; 81003; 81015; 81025; 82962; 83036; 83605; 83690; 84145; 85025; 85651; 86140; 87040; 87070; 87075; 87077; 87147; 87205; 87635; 93005; 94760; 96365; 96366; 99284; C9803; J0692; J1650; J1815